=== PATIENT | female | born 1990 | race Caucasian/White ===

== ENCOUNTER 2023-03-25 08:42 | Emergency (ER) | payer MEDICAID ==
[~2023-03-25] VITALS: Ht 160 cm; Wt 91.0 kg
[2023-03-25 08:58] VITALS: O2SAT 98
[2023-03-25] MEDS ORDERED: IBUP-2029 MT (10:22)
[2023-03-25] MEDS ORDERED: IBUPROFEN 600MG TABLET PO ONE (10:30)
[2023-03-25 12:11] VITALS: BP 129/85; PULSE 74; RESP 19; TEMP 98.2
== END 2023-03-25 12:12 | disposition home or self-care (01) ==
LOC: ER 09:28
DX: S83.92XA Sprain of unspecified site of left knee, initial encounter (principal); W50.2XXA Accidental twist by another person, initial encounter; Y93.89 Activity, other specified; Y92.89 Other specified places as the place of occurrence of the external cause; Y99.8 Other external cause status
CPT/HCPCS: 29505; 73560; 99283

== ENCOUNTER 2024-03-25 00:35 | Emergency (ER) | payer MEDICAID ==
[~2024-03-25] VITALS: Ht 157.5 cm; Wt 80.0 kg
[~2024-03-25 00:35] MED LIST: IBUP-2029 MT
[2024-03-25 00:52] VITALS: O2SAT 100
[2024-03-25] MEDS: KETOROLAC 30MG/ML VIAL IM NR (06:45)
[2024-03-25] MEDS: TETANUS, DIPHTHERIA, PERTUSSIS VAC/PF 0.5ML (>10YR OLD) IM ONE (06:46)
[2024-03-25 06:47] VITALS: BP 128/82; PULSE 91; RESP 18; TEMP 37.00296; O2SAT 100
== END 2024-03-25 06:48 | disposition home or self-care (01) ==
LOC: ER 00:35
DX: M79.631 Pain in right forearm (principal)
CPT/HCPCS: 73090; 96372; 99283; J1885; Z7610; 90715; A4565